=== PATIENT | female | born 1990 | race Caucasian/White ===

== ENCOUNTER → 2017-01-25 | Outpatient (CLI) | payer BC | END | disposition home or self-care (01) | LOC: LAB 20:14 | DX: E03.9 Hypothyroidism, unspecified (principal) ==

== ENCOUNTER → 2018-05-01 | Outpatient (CLI) | payer OTHER | END | disposition home or self-care (01) | LOC: LAB 02:55 → US 10:30 → LAB 10:30 | DX: E03.9 Hypothyroidism, unspecified (principal); E04.9 Nontoxic goiter, unspecified ==

== ENCOUNTER → 2020-04-29 | Outpatient (CLI) | payer BC | END | disposition home or self-care (01) | LOC: MRI 09:29 | DX: M25.561 Pain in right knee (principal) ==

== ENCOUNTER → 2020-11-12 | Outpatient (CLI) | payer BC ==
[2020-11-12 09:56] LABS: ALBUMIN 3.6 gm/dl (3.1-4.5); ALKALINE PHOSPHATASE 57 U/L (45-117); BUN 9 mg/dl (7-24); CHLORIDE 111 mmol/L (98-107); CHOLESTEROL 123 mg/dL (<200); CREATININE 0.92 mg/dL (0.55-1.02); HDL CHOLESTEROL 89 mg/dl (40-60); LDL CHOLESTEROL 26 mg/dL (9-159); POTASSIUM 4.2 mmol/L (3.5-5.1); SGOT/AST 16 IU/L (3-35); SGPT/ALT 25 U/L (12-78); SODIUM 140 mmol/L (136-145); TOTAL PROTEIN 7.6 gm/dL (6.4-8.2); TRIGLYCERIDES 41 mg/dl (<150); VLDL CHOLESTEROL 8 mg/dL (6-40)
== END | disposition home or self-care (01) ==
LOC: LAB 09:11
PROVIDERS: ATTEND Family Medicine
DX: Z00.00 Encounter for general adult medical examination without abnormal findings (principal)

== ENCOUNTER → 2021-11-03 | Outpatient (CLI) | payer BC ==
[2021-11-03 10:54] LABS: MEAN CELL VOLUME 88.6 fl (81.0-99.0); MEAN CORPUSCULAR HGB 29.5 pg (27.0-31.0); MEAN CORPUSCULAR HGB CONC 33.3 g/dl (33.0-37.0); MEAN PLATELET VOLUME 10.3 fl (9.6-12.3); RED BLOOD COUNT 4.74 10*6/uL (4.10-5.10); RED CELL DISTRI WIDTH 12.8 % (0-14.5); WHITE BLOOD COUNT 4.5 10*3/uL (4.8-10.8)
[2021-11-03 11:11] LABS: ALBUMIN 3.7 gm/dl (3.1-4.5); BUN 12 mg/dl (7-24); CHLORIDE 112 mmol/L (98-107); CHOLESTEROL 109 mg/dL (<200); SGOT/AST 19 IU/L (3-35); SGPT/ALT 19 U/L (12-78); SODIUM 142 mmol/L (136-145); TOTAL PROTEIN 7.7 gm/dL (6.4-8.2); TRIGLYCERIDES 60 mg/dl (<150)
[2021-11-03 11:20] LABS: ALKALINE PHOSPHATASE 51 U/L (45-117); LDL CHOLESTEROL 15 mg/dL (9-159)
== END | disposition home or self-care (01) ==
LOC: LAB 00:10
PROVIDERS: ATTEND Family Medicine
DX: E01.0 Iodine-deficiency related diffuse (endemic) goiter (principal); R10.12 Left upper quadrant pain